=== PATIENT | male | born 1980 | race Caucasian/White ===

== ENCOUNTER 2024-08-22 14:39 | Emergency (ER) | payer BC ==
[~2024-08-22] VITALS: Ht 175.3 cm; Wt 80.7 kg
[2024-08-22] MEDS ORDERED: LORAZEPAM INJ 2 MG/ML VIAL ONE (15:58)
[2024-08-22] MEDS: LORAZEPAM 4 MG/ML VIAL IM ONE (16:05)
[2024-08-22 16:09] VITALS: BP 158/93; TEMP 78; O2SAT 98
[2024-08-23] MEDS ORDERED: CLON0.5T PO (14:38)
[2024-08-23] MEDS ORDERED: CLON0.1T PO (14:38)
[2024-08-23] MEDS ORDERED: BACL10TA PO (14:38)
[2024-08-23] MEDS ORDERED: TRAZ-182 PO (14:38)
[2024-08-23] MEDS ORDERED: HYDR50TA61 PO (14:38)
[2024-08-25] MEDS ORDERED: LORA-259 PO (16:50)
[2024-08-25] MEDS ORDERED: OLAN5TAB3 PO (16:50)
[2024-08-25] MEDS ORDERED: PANT40TA2 PO (16:52)
== END 2024-08-22 16:09 | disposition home or self-care (01) ==
LOC: ER 14:41
DX: F41.9 Anxiety disorder, unspecified (principal); F19.90 Other psychoactive substance use, unspecified, uncomplicated; Z79.899 Other long term (current) drug therapy
CPT/HCPCS: 99283; 96372; J2060 ×2

== ENCOUNTER 2024-08-23 06:48 | Emergency (ER) | payer BC ==
[~2024-08-23] VITALS: Ht 175.3 cm; Wt 81.6 kg
[2024-08-23] MEDS: IV NS 0.9% 1,000 ML BAG IV ONE (07:25)
[2024-08-23 07:47] LABS: BASOPHILS % (AUTO) 0.2 % (0.0-2.0); EOSINOPHILS % (AUTO) 0.3 % (0.0-6.0); HEMATOCRIT 47 % (39-51); HEMOGLOBIN 15.7 g/dL (13.5-17.5); LYMPHOCYTES # (AUTO) 2.1 K/uL (0.8-4.8); LYMPHOCYTES % (AUTO) 25.8 % (20.0-44.0); MEAN CORPUSCULAR HEMOGLOBIN 28 PG (26.0-33.0); MEAN CORPUSCULAR HGB CONC 34 g/dl (31.0-36.0); MEAN CORPUSCULAR VOLUME 81 fL (80-96); MONOCYTES # (AUTO) 0.8 K/uL (0.1-1.30); MONOCYTES % (AUTO) 10.5 % (2.0-12.0); NEUTROPHILS # (AUTO) 5.1 K/uL (1.8-8.9); NEUTROPHILS % (AUTO) 63.2 % (43.0-81.0); PLATELET COUNT (AUTO) 236 K/uL (150-450); RED BLOOD CELL COUNT(AUTO) 5.73 MIL/uL (4.5-6.0); WHITE BLOOD COUNT (AUTO) 8.1 K/uL (4.3-11.0)
[2024-08-23 07:54] LABS: CALCIUM, SERUM 9.3 mg/dL (8.5-10.1); CREATININE 1.1 mg/dL (0.6-1.3); INR 1.09 (0.91-1.10); PARTIAL THROMBOPLASTIN TIME 30.3 SEC (24.3-34.3); POTASSIUM 3.3 mmol/L (3.5-5.1); PROTHROMBIN TIME 11.5 SECS (9.2-11.1)
[2024-08-23 07:56] LABS: ALBUMIN 4.1 g/dL (3.4-5.0); BILIRUBIN,DIRECT 0.5 mg/dL (0.0-0.2); BILIRUBIN,TOTAL 1.7 mg/dL (0.2-1.0); TOTAL PROTEIN, SERUM 8.3 g/dL (6.4-8.2)
[2024-08-23 09:00] VITALS: BP 118/75; TEMP 98.6; O2SAT 97
[2024-08-23] MEDS ORDERED: HYDR50TA61 PO (14:38)
[2024-08-23] MEDS ORDERED: BACL10TA PO (14:38)
[2024-08-23] MEDS ORDERED: CLON0.5T PO (14:38)
[2024-08-23] MEDS ORDERED: TRAZ-182 PO (14:38)
[2024-08-23] MEDS ORDERED: CLON0.1T PO (14:38)
[2024-08-25] MEDS ORDERED: LORA-259 PO (16:50)
[2024-08-25] MEDS ORDERED: OLAN5TAB3 PO (16:50)
[2024-08-25] MEDS ORDERED: PANT40TA2 PO (16:52)
== END 2024-08-23 09:01 | disposition home or self-care (01) ==
LOC: ER 06:52
DX: F41.1 Generalized anxiety disorder (principal); K22.6 Gastro-esophageal laceration-hemorrhage syndrome; R11.2 Nausea with vomiting, unspecified
CPT/HCPCS: 99284; 96360; 93005; 85025; 80048; 80076; 36415; 85730; 86850; J7030

== ENCOUNTER 2024-08-23 12:37 | Inpatient (IN) | payer BC ==
[~2024-08-23] VITALS: Ht 175.3 cm; Wt 80.7 kg
[2024-08-23] MEDS ORDERED: PANTOPRAZOLE 40 MG VIAL ONE (13:30)
[2024-08-23] MEDS ORDERED: LORAZEPAM INJ 2 MG/ML VIAL ONE (13:30)
[2024-08-23] MEDS: IV NS 0.9% 1,000 ML BAG IV ONE (13:35)
[2024-08-23] MEDS: PANTOPRAZOLE 40 MG VIAL IV ONE (13:36)
[2024-08-23] MEDS: LORAZEPAM INJ 2 MG/ML VIAL IV ONE (13:44)
[2024-08-23 13:57] LABS: BASOPHILS % (AUTO) 0.2 % (0.0-2.0); EOSINOPHILS % (AUTO) 0.3 % (0.0-6.0); HEMATOCRIT 46 % (39-51); HEMOGLOBIN 15.7 g/dL (13.5-17.5); LYMPHOCYTES % (AUTO) 23.7 % (20.0-44.0); MEAN CORPUSCULAR HEMOGLOBIN 28 PG (26.0-33.0); MEAN CORPUSCULAR HGB CONC 34 g/dl (31.0-36.0); MEAN CORPUSCULAR VOLUME 82 fL (80-96); MONOCYTES # (AUTO) 0.9 K/uL (0.1-1.30); MONOCYTES % (AUTO) 11.4 % (2.0-12.0); NEUTROPHILS # (AUTO) 5.3 K/uL (1.8-8.9); NEUTROPHILS % (AUTO) 64.4 % (43.0-81.0); PLATELET COUNT (AUTO) 252 K/uL (150-450); RED BLOOD CELL COUNT(AUTO) 5.65 MIL/uL (4.5-6.0); WHITE BLOOD COUNT (AUTO) 8.2 K/uL (4.3-11.0)
[2024-08-23 14:00] LABS: INR 1.08 (0.91-1.10); PARTIAL THROMBOPLASTIN TIME 30.3 SEC (24.3-34.3); PROTHROMBIN TIME 11.4 SECS (9.2-11.1)
[2024-08-23 14:07] LABS: CALCIUM, SERUM 9.6 mg/dL (8.5-10.1); CREATININE 1.1 mg/dL (0.6-1.3); POTASSIUM 3.7 mmol/L (3.5-5.1)
[2024-08-23 14:10] LABS: ALBUMIN 4.1 g/dL (3.4-5.0); BILIRUBIN,DIRECT 0.5 mg/dL (0.0-0.2); BILIRUBIN,TOTAL 1.7 mg/dL (0.2-1.0); TOTAL PROTEIN, SERUM 8.4 g/dL (6.4-8.2)
[2024-08-23] MEDS ORDERED: CLON0.5T PO (14:38)
[2024-08-23] MEDS ORDERED: CLON0.1T PO (14:38)
[2024-08-23] MEDS ORDERED: BACL10TA PO (14:38)
[2024-08-23] MEDS ORDERED: TRAZ-182 PO (14:38)
[2024-08-23] MEDS ORDERED: HYDR50TA61 PO (14:38)
[2024-08-23 20:00] VITALS: BP 127/86; TEMP 97.9; O2SAT 100
[2024-08-23] MEDS ORDERED: HYDROCODONE/APAP 5/325MG TABLET PO PRN (21:00)
[2024-08-23] MEDS ORDERED: ACETAMINOPHEN 325 MG TABLET PO PRN (21:00)
[2024-08-23] MEDS ORDERED: Z GUARD REMEDY 4 OZ OINT TP PRN (21:00)
[2024-08-23] MEDS ORDERED: MAGNESIUM HYDROXIDE 30 ML UDC PO PRN (21:00)
[2024-08-23] MEDS ORDERED: MAG HYDROX/AL HYDROX/SIMETH 30 ML UDC PO PRN (21:00)
[2024-08-23] MEDS ORDERED: ONDANSETRON HCL/PF 4 MG/2 ML VIAL IVP PRN (21:00)
[2024-08-23] MEDS: PANTOPRAZOLE 40 MG VIAL IV SCH (21:30)
[2024-08-23] MEDS: LORAZEPAM 1 MG TABLET PO PRN (22:59)
[2024-08-24] MEDS: ZOLPIDEM TARTRATE 5 MG TABLET PO PRN (00:02)
[2024-08-24 07:05] LABS: BASOPHILS # (AUTO) 0.1 K/uL (0.0-0.2); BASOPHILS % (AUTO) 0.7 % (0.0-2.0); EOSINOPHILS # (AUTO) 0.2 K/uL (0.0-0.7); EOSINOPHILS % (AUTO) 2.7 % (0.0-6.0); HEMATOCRIT 47 % (39-51); HEMOGLOBIN 16.2 g/dL (13.5-17.5); LYMPHOCYTES % (AUTO) 38.4 % (20.0-44.0); MEAN CORPUSCULAR HEMOGLOBIN 28 PG (26.0-33.0); MEAN CORPUSCULAR HGB CONC 35 g/dl (31.0-36.0); MEAN CORPUSCULAR VOLUME 82 fL (80-96); MONOCYTES # (AUTO) 0.9 K/uL (0.1-1.30); MONOCYTES % (AUTO) 11.6 % (2.0-12.0); NEUTROPHILS # (AUTO) 3.6 K/uL (1.8-8.9); NEUTROPHILS % (AUTO) 46.6 % (43.0-81.0); PLATELET COUNT (AUTO) 265 K/uL (150-450); RED BLOOD CELL COUNT(AUTO) 5.71 MIL/uL (4.5-6.0); RED CELL DISTRIBUTION WIDTH 12.8 % (11.5-15.0); WHITE BLOOD COUNT (AUTO) 7.8 K/uL (4.3-11.0)
[2024-08-24 07:19] LABS: CALCIUM, SERUM 9.2 mg/dL (8.5-10.1); CREATININE 1.1 mg/dL (0.6-1.3); MAGNESIUM 2.2 mg/dL (1.8-2.4); PHOSPHORUS 2.6 mg/dL (2.5-4.9); POTASSIUM 3.6 mmol/L (3.5-5.1)
[2024-08-24 07:30] VITALS: BP 114/95; TEMP 97.1; O2SAT 99
[2024-08-24 08:00] VITALS: BP 114/95; TEMP 97.5; O2SAT 99
[2024-08-24] MEDS: PANTOPRAZOLE 40 MG TABLET.DR PO SCH (09:12)
[2024-08-24] MEDS ORDERED: ZOLPIDEM TARTRATE 5 MG TABLET PO PRN (12:00)
[2024-08-24 13:21] LABS: AMPHETAMINE, URINE NEGATIVE (NEGATIVE); BARBITURATE, URINE NEGATIVE (NEGATIVE); BENZODIAZEPINE, URINE NEGATIVE (NEGATIVE); CANNABINOID, URINE NEGATIVE (NEGATIVE); COCCAINE, URINE NEGATIVE (NEGATIVE); OPIATE, URINE NEGATIVE (NEGATIVE); PHENCYCLIDINE SCREEN,URINE NEGATIVE (NEGATIVE)
[2024-08-24] MEDS: OLANZAPINE ZYDIS 5 MG TAB.RAPDIS PO PRN (14:54)
[2024-08-24 16:00] VITALS: BP 145/89; TEMP 97.9; O2SAT 98
[2024-08-24] MEDS: LORAZEPAM 1 MG TABLET PO PRN (18:26)
[2024-08-24 20:00] VITALS: BP 113/80; TEMP 97.9; O2SAT 99
[2024-08-25] MEDS: IV NS 0.9% 1,000 ML IV PRN (06:43)
[2024-08-25 06:44] LABS: BASOPHILS % (AUTO) 0.5 % (0.0-2.0); EOSINOPHILS # (AUTO) 0.3 K/uL (0.0-0.7); EOSINOPHILS % (AUTO) 3.1 % (0.0-6.0); HEMATOCRIT 48 % (39-51); HEMOGLOBIN 15.9 g/dL (13.5-17.5); LYMPHOCYTES # (AUTO) 2.3 K/uL (0.8-4.8); LYMPHOCYTES % (AUTO) 27.7 % (20.0-44.0); MEAN CORPUSCULAR HEMOGLOBIN 27 PG (26.0-33.0); MEAN CORPUSCULAR HGB CONC 33 g/dl (31.0-36.0); MEAN CORPUSCULAR VOLUME 82 fL (80-96); MONOCYTES % (AUTO) 12.2 % (2.0-12.0); NEUTROPHILS # (AUTO) 4.7 K/uL (1.8-8.9); NEUTROPHILS % (AUTO) 56.5 % (43.0-81.0); PLATELET COUNT (AUTO) 260 K/uL (150-450); RED BLOOD CELL COUNT(AUTO) 5.86 MIL/uL (4.5-6.0); WHITE BLOOD COUNT (AUTO) 8.2 K/uL (4.3-11.0)
[2024-08-25 06:59] LABS: CALCIUM, SERUM 9.4 mg/dL (8.5-10.1); CREATININE 1.1 mg/dL (0.6-1.3); POTASSIUM 3.3 mmol/L (3.5-5.1)
[2024-08-25 08:00] VITALS: BP 134/87; TEMP 98.1; O2SAT 99
[2024-08-25] MEDS: LORAZEPAM INJ 2 MG/ML VIAL IV PRN (09:12)
[2024-08-25] MEDS: POTASSIUM CL. PREMIX PERIPHER. 50 ML IV SCH (10:54)
[2024-08-25 16:26] VITALS: BP 100/87; TEMP 98.1; O2SAT 99
[2024-08-25] MEDS ORDERED: OLAN5TAB3 PO (16:50)
[2024-08-25] MEDS ORDERED: LORA-259 PO (16:50)
[2024-08-25] MEDS ORDERED: PANT40TA2 PO (16:52)
== END 2024-08-25 16:35 | disposition home or self-care (01) | DRG 392 ==
LOC: ER 12:46 → MED 17:22
PROVIDERS: ADMIT Nurse Practitioner Acute Care; ATTEND Nurse Practitioner Acute Care
PROC: 0DB68ZX Excision of Stomach, Via Natural or Artificial Opening Endoscopic, Diagnostic (ICD-10-PCS; principal; 2024-08-25 15:30)
DX: K31.84 Gastroparesis (principal); K50.90 Crohn's disease, unspecified, without complications; F41.9 Anxiety disorder, unspecified; K29.70 Gastritis, unspecified, without bleeding; E80.6 Other disorders of bilirubin metabolism; F32.A Depression, unspecified; F41.1 Generalized anxiety disorder; F32.9 Major depressive disorder, single episode, unspecified; F41.0 Panic disorder [episodic paroxysmal anxiety]
CPT/HCPCS: 36415; 43235; 80048-TC; 80076-TC; 83735-TC; 84100-TC; 85025-TC; 85730-TC; 86850-TC; A4223; G0378; J2060; J2470; J2704; J3480; J3490; J7030